=== PATIENT | female | born 1995 | race African-American/Black ===

== ENCOUNTER 2025-09-01 22:47 | Emergency (ER) | payer BC, OTHER ==
[~2025-09-01] VITALS: Ht 180.3 cm; Wt 86.0 kg
[2025-09-01 23:00] VITALS: O2SAT 95
[2025-09-02] MEDS: ONDANSETRON 4MG ODT PO NR (00:43)
[2025-09-02] MEDS: FAMOTIDINE 20MG TABLET PO NR (00:43)
[2025-09-02] MEDS: MAGNESIUM/ALUMINUM HYDROXIDE/SIMETHICONE 30ML UDC PO NR (00:43)
[2025-09-02 01:35] LABS: BASOPHILS % 0.8 % (0.0-2.0); EOSINOPHILS % 0.2 % (0.0-5.0); HEMATOCRIT. 40.7 % (36.0-48.0); HEMOGLOBIN. 13.7 g/dL (12.0-16.0); LYMPHOCYTES % 21.6 % (20.0-50.0); MEAN PLATELET VOLUME 7.3 fl (7.4-10.4); MONOCYTES % 8.9 % (2.0-8.0); NEUTROPHILS % 68.5 % (40.0-76.0); PLATELET 379 x1000/uL (130-400); RED BLOOD CELL COUNT 4.19 mill/uL (4.2-5.4); RED CELL DISTRIBUTION WIDTH 14.6 % (11.6-14.6)
[2025-09-02 01:49] LABS: CREATININE 0.8 mg/dL (0.6-1.0); UREA NITROGEN BLOOD 6 mg/dL (9-23)
[2025-09-02 01:50] LABS: ETHANOL BLOOD 284 mg/dL (<10); HCG SCREEN NEGATIVE
[2025-09-02] MEDS: TRAZODONE HCL 50MG TABLET PO SCH (02:33)
[2025-09-02 05:32] LABS: *AMPHETAMINES SCREEN URINE NEGATIVE (NEGATIVE)
[2025-09-02 05:33] LABS: *BARBITURATES SCREEN URINE NEGATIVE (NEGATIVE); *BENZODIAZEPINES SCREEN URINE NEGATIVE (NEGATIVE); *COCAINE SCREEN URINE NEGATIVE (NEGATIVE); CANNABINOID URINE SCREEN NEGATIVE (NEGATIVE); ECSTASY MDMA SCREEN URINE NEGATIVE (NEGATIVE); METHADONE URINE SCREEN NEGATIVE (NEGATIVE); OPIATES URINE SCREEN NEGATIVE (NEGATIVE); PHENCYCLIDINE URINE SCREEN NEGATIVE (NEGATIVE)
[2025-09-02] MEDS: ARIPIPRAZOLE 5MG TABLET PO SCH (11:45)
[2025-09-02 13:54] VITALS: BP 107/77; PULSE 92; RESP 18; TEMP 37; O2SAT 100
== END 2025-09-02 14:11 ==
LOC: ER 22:47
DX: F32.A Depression, unspecified (principal); F17.200 Nicotine dependence, unspecified, uncomplicated; F10.129 Alcohol abuse with intoxication, unspecified; Z79.899 Other long term (current) drug therapy; Z20.822 Contact with and (suspected) exposure to COVID-19
CPT/HCPCS: 99285; 80305; 80048; 80307; 80329; 80320; 84703; 85025; 36415; 87426; Q0162; G0480